=== PATIENT | female | born 1975 | race African-American/Black ===

== ENCOUNTER 2025-05-19 20:44 | Emergency (ER) | payer OTHER ==
[~2025-05-19] VITALS: Ht 157.5 cm; Wt 78.2 kg
[2025-05-19 21:21] VITALS: BP 140/89; TEMP 36.9; O2SAT 100
[2025-05-19 21:24] VITALS: PULSE 94; RESP 18; O2SAT 100
== END 2025-05-20 01:23 | disposition left against medical advice (07) ==
LOC: ER 20:44
DX: R05.9 Cough, unspecified (principal); R09.81 Nasal congestion; Z53.21 Procedure and treatment not carried out due to patient leaving prior to being seen by health care provider